=== PATIENT | female | born 1990 | race Caucasian/White ===

== ENCOUNTER → 2016-05-12 | Outpatient (CLI) | payer OTHER ==
[~2016-05-12] MED LIST: LEVO25TA5 PO
== END | disposition home or self-care (01) ==
LOC: C.LAB1850 09:15
PROVIDERS: ATTEND Obstetrics & Gynecology
DX: E03.9 Hypothyroidism, unspecified (principal)

== ENCOUNTER 2016-05-14 11:24 | Day surgery (SDC) | payer OTHER ==
--- NOTE | 2016-05-12 18:26 | HISTORY & PHYSICAL EXAMINATION ---
DATE OF ADMISSION: 05/14/2016 ADMITTING DIAGNOSIS: Missed . ADMISSION HISTORY: The patient is a 25-year-old 1, para 0 at approximately 10 weeks gestational age by dates, who is admitted for suction D\T\E for missed AB. The patient was seen in late April for her new OB visit. At that point, a pelvic ultrasound showed an empty intrauterine sac with quantitative hCG of 17,000. The patient returned 1 week later for repeat ultrasound in the interval time. She has begun to bleed. Repeat ultrasound in the office today shows a blighted ovum, treatment options were discussed. The patient is requesting the above listed procedure. PAST MEDICAL HISTORY: OBSTETRICAL: As above. GYNECOLOGIC: None. MEDICAL: Hypothyroidism. SURGICAL: None. ALLERGIES: No known drug allergies. SOCIAL HISTORY: No smoking. FAMILY HISTORY: Noncontributory. REVIEW OF SYSTEMS: As per HPI. ADMISSION PHYSICAL EXAMINATION: GENERAL: Shows a pleasant female in no acute distress. VITAL SIGNS: Blood pressure of 96/72 and a weight of 124 pounds. HEENT EXAMINATION: Unremarkable. NECK: Supple. LUNGS: Clear. HEART: With a regular rhythm and rate. ABDOMEN: Soft, nontender. PELVIC: Shows normal external genitalia, vaginal wall pink and rugated. Cervical os is closed. There is some blood in the posterior fornix. Bimanual examination shows an 8-10 week size anterior uterus. The adnexa show no palpable masses. RECTAL: Confirmatory. EXTREMITIES: Exam shows no deep calf tenderness. NEUROLOGIC: Grossly intact. IMPRESSION: A 25-year-old 1, para 0 at 10 weeks gestational age, suction D\T\E for missed . PLAN: Risks, benefits and alternatives to the surgery have been discussed. While the benefits will be removal of gestational tissue, the risks are bleeding, infection, inadvertent perforation of the uterus or failure to remove all the gestational tissue. The patient understands this. Permit has been signed and she wishes to proceed.
[~2016-05-14] VITALS: Ht 152.4 cm; Wt 56.3 kg
[2016-05-14 11:21] VITALS: BP 92/68; PULSE 85; TEMP 36.9; O2SAT 100; Ht 152.4 cm; Wt 56.3 kg
[~2016-05-14 11:24] MED LIST changes: +DOXYCYCLINE HYCLATE 100 MG CAP PO SCH; +LACTATED RINGER'S 1000ML 1,000 ML IV SCH; -LEVO25TA5 PO
[2016-05-14] MEDS ORDERED: LEVO25TA5 PO (12:18)
--- NOTE | 2016-05-14 12:49 | History & Physical Bridge Note ---
H&P Re-Evaluation Bridge Note: I have examined the patient, reviewed the History & Physical and in the interval since the performance of the History & Physical I have noted the following changes of clinical significance: No changes noted
[2016-05-14] MEDS ORDERED: MIDAZOLAM HCL 1 MG/ML 2ML VIAL ONE (12:52)
[2016-05-14] MEDS ORDERED: PROPOFOL IV EMULSION 10 MG/ML 20 ML VIAL IV ONE (12:52)
[2016-05-14] MEDS ORDERED: LIDOCAINE HCL 2% 2 ML VIAL (20MG/ML) ONE (12:52)
[2016-05-14] MEDS ORDERED: FENTANYL CITRATE INJ 50 MCG/1 ML 2 ML VIAL ONE ×2 (12:52→14:06)
[2016-05-14] MEDS ORDERED: DEXAMETHASONE SOD INJ 4 MG/ML VIAL ONE (12:52)
[2016-05-14] MEDS ORDERED: ONDANSETRON INJ 2 MG/ML 2 ML VIAL ONE (12:52)
[2016-05-14] MEDS ORDERED: KETOROLAC TROMETHAMINE 30 MG/ML VIAL ONE (13:35)
[2016-05-14] MEDS ORDERED: SODIUM CHLORIDE 0.9% 1000ML 1,000 ML IV SCH (13:55)
--- NOTE | 2016-05-14 13:55 | [facility] Operative Report ---
Operative Report Operative Date May 14, 2016. Pre-Operative Diagnosis Missed Post-Operative Diagnosis same Procedure(s) Performed D&E Surgeon Dr. Polly Arriaga Social Service Worker Surgeon(s) none Estimated Blood Loss 50 ml Findings 9 week size uterus, no adnexal masses, scant bleeding from cervical os. Fluids 500 Specimens A: retained products of conception Drains none Anesthesia GET Complication(s) None Disposition Recovery Room / PACU I attest to the content of the Intraoperative Record and any orders documented therein. Any exceptions are noted below.
--- NOTE | 2016-05-14 13:58 | Discharge Instructions ---
Discharge Instructions Visit Reason for Visit: Missed Discharge Discharge Diagnosis / Problem: D&E for miscarriage Discharge Goals Goal(s): Therapeutic intervention Activity Recommendations Activity Limitations: per Instructions/Follow-up section Anesthesia . Post Anesthesia Instructions: If you have had General Anesthesia or IV Sedation: * Do not drive today. * Resume driving when surgeon permits. * Do not make important decisions or sign legal documents today. * Call surgeon for: 1. Temperature elevations greater than 101 degrees F. 2. Uncontrollable pain. 3. Excessive bleeding. 4. Persistent nausea and vomiting. 5. Medication intolerance (nausea, vomiting or rash). * For nausea and vomiting use only clear liquids such as: tea, soda, bouillon until nausea subsides, then gradually increase diet as tolerated. * If you have any concerns or questions, call your surgeon's office. If physician is unavailable and it is an emergency, call 911 or go to the nearest emergency room. . Instructions / Follow-Up Instructions / Follow-Up ACTIVITY RECOMMENDATIONS: * Avoid tampons, douching, hot tubs, pools, and intercourse until bleeding has stopped. * May shower as usual. * No strenuous activity for 24-48 hours. After 24-48 hours, you may do anything you feel like doing (driving and sports are okay). SPECIAL CARE INSTRUCTIONS: Special Diet: * Mild nausea may occur in the immediate post-operative period. * Take clear liquids such as tea, cola or bouillon until all nausea has subsided; you may then resume your normal diet. Special Care: * Light bleeding and vaginal spotting can last from a few days to 3-4 weeks. Call your doctor if bleeding becomes heavier than the heaviest part of your period. * Check your temperature twice a day for one week. If it goes above 100.4 degrees Fahrenheit (38.0 Celsius), notify your doctor. * Call your doctor's office for an appointment for 6 weeks after your surgery. FOLLOW-UP VISIT: Call your doctor's office for an appointment for 6 weeks after your surgery. Diet Recommendations Recommended Home Diet: resume previous diet Procedures Procedures Performed: Dilation, curettage, and evacuation Pending Studies Studies pending at discharge: no Medical Emergencies . Who to Call and When: Medical Emergencies: If at any time you feel your situation is an emergency, please call 911 immediately. . Non-Emergent Contact Non-Emergency issues call your: Primary Care Provider, [facility] . . "Provider Documentation" section prepared by Clotilde Arriaga.
[2016-05-14] MEDS ORDERED: OXYCODONE/ACETAMINOPHEN 5-325 TAB PO PRN (14:00)
[2016-05-14] MEDS ORDERED: PROMETHAZINE HCL INJ 25 MG in SODIUM CHLORIDE 0.9% 50ML 50 ML IV PRN (14:00)
[2016-05-14] MEDS ORDERED: IBUPROFEN 600 MG TAB PO PRN (14:00)
[2016-05-14] MEDS ORDERED: KETOROLAC TROMETHAMINE 30 MG/ML VIAL IV. PRN (14:00)
[2016-05-14] MEDS ORDERED: ONDANSETRON INJ 2 MG/ML 2 ML VIAL IV PRN ×2 (14:00→14:15)
[2016-05-14] MEDS ORDERED: EpHEDrine SULFATE INJ 50 MG/ML AMP IV PRN (14:15)
[2016-05-14] MEDS ORDERED: FENTANYL CITRATE INJ 50 MCG/1 ML 2 ML VIAL IV PRN (14:15)
[2016-05-14] MEDS ORDERED: ATROPINE SULFATE 0.1 MG/ML 5ML SYR IV PRN (14:15)
--- NOTE | 2016-05-14 14:29 | Anesthesiology Progress Note ---
Anesthesia Post Op Note Date & Time May 14, 2016 at 14:28 Vital Signs Pain Intensity: 0 Vital Signs Past 12 Hours Date Time Temp Pulse Resp B/P Pulse Ox O2 Delivery O2 Flow Rate FiO2 05/14/16 14:20 69 12 107/61 98 Room Air 05/14/16 14:10 69 18 111/71 100 Mask 10 05/14/16 14:00 80 16 114/68 100 Mask 10 05/14/16 13:51 37.0 86 12 109/71 100 Mask 10 05/14/16 11:21 36.9 85 20 92/68 100 Room Air Notes Mental Status: alert / awake / arousable, participated in evaluation Pt Amnestic to Procedure: Yes Nausea / Vomiting: adequately controlled Pain: adequately controlled Airway Patency, RR, SpO2: stable & adequate BP & HR: stable & adequate Hydration State: stable & adequate Anesthetic Complications: no major complications apparent
--- NOTE | 2016-05-14 14:32 | OPERATIVE REPORT ---
DATE OF OPERATION: 05/14/2016 PREOPERATIVE DIAGNOSIS: Missed at 9 weeks. POSTOPERATIVE DIAGNOSIS: Same. PROCEDURE: D\T\E. SURGEON: Dr. Clotilde Arriaga. ANESTHESIA: General endotracheal. ESTIMATED BLOOD LOSS: 50 mL. HISTORY OF PRESENT ILLNESS: The patient is a 25-year-old 1, para 0 white female who had presented for her initial OB visit at approximately 9 weeks. She was noted to have at that point a 9-week gestational sac but no pole or yolk sac. Followup ultrasound confirmed the presence of a blighted ovum. The patient had not experienced any bleeding except for some spotting and some mild pelvic discomfort. Followup ultrasound confirmed again several weeks later that the blighted ovum is still present. Options were discussed with the patient including observation, Cytotec versus a D & E The patient elected for D&E and the procedure as well as the risks were reviewed with the patient and all questions were answered to her satisfaction. GROSS FINDINGS: Uterus was gravid and approximately 9 weeks in size, mobile and has a normal contour. Bilateral ovaries were also without masses. Cervix was within normal limits. Perineum was nulliparous. There was some scant bleeding from the cervical os. DESCRIPTION OF PROCEDURE: After the patient received adequate general endotracheal anesthesia, she does have a history of acid reflux on the way back to the OR. She was prepped and draped in the usual sterile fashion. After her bladder was emptied, a weighted speculum was placed in the vagina and the anterior lip of the cervix was grasped with a single tooth tenaculum. Cervix was dilated to a #25 Hanks dilator. A #8 air shield was used to evacuate the contents of the uterus. Post-evacuation, curettage revealed good uterine cry throughout. Hemostasis was noted to be satisfactory both from the cervix and from the tenaculum site. Case was then terminated. The patient tolerated the procedure well and was stable upon arrival in recovery room. I attest to the content of the Intraoperative Record and any orders documented therein. Any exceptions are noted below. MTDD
[2016-05-14 14:40] VITALS: BP 95/60; PULSE 65; TEMP 36.7; O2SAT 99
[2016-05-14 15:10] VITALS: BP 103/53; PULSE 79; O2SAT 99
== END 2016-05-14 16:16 | disposition home or self-care (01) ==
LOC: C.ACU 11:24
PROVIDERS: ATTEND Obstetrics & Gynecology
DX: O02.1 Missed abortion (principal); E03.9 Hypothyroidism, unspecified; Z98.818 Other dental procedure status

== ENCOUNTER → 2017-08-12 | Outpatient (CLI) | payer OTHER ==
[~2017-08-12] MED LIST changes: -DOXYCYCLINE HYCLATE 100 MG CAP PO SCH; -LACTATED RINGER'S 1000ML 1,000 ML IV SCH; +LEVO25TA5 PO
[2017-08-12 14:45] LABS: BASO % 0.5 %; BASO ABS # 0.05 K/uL (0-0.2); EOS % 0.4 %; EOS ABS # 0.04 K/uL (0-0.5); HEMOGLOBIN 14.1 g/dL (12.0-16.0); IG# 0.02 K/uL (0.00-0.02); LYMPH % 22.6 %; LYMPH ABS # 2.12 K/uL (1.2-3.4); MEAN CELL VOLUME 91.1 fL (80-100); MEAN CORPUSCULAR HEMOGLOBIN 32.9 pg (25-34); MEAN CORPUSCULAR HGB CONC 36.2 g/dl (32-36); MEAN PLATELET VOLUME 9.5 fL (7.4-10.4); MONO % 7.9 %; MONO ABS # 0.74 K/uL (0.11-0.59); NEUT % 68.4 %; NEUT ABS # 6.41 K/uL (1.4-6.5); PLATELET COUNT 314 K/uL (130-400); RED CELL DISTRIBUTION WIDTH CV 12.3 % (11.5-14.5); RED CELL DISTRIBUTION WIDTH SD 40.8 fL (36.4-46.3); WHITE BLOOD COUNT 9.38 K/uL (4.8-10.8)
== END | disposition home or self-care (01) ==
LOC: C.LAB1850 13:23
PROVIDERS: ATTEND Obstetrics & Gynecology
DX: O09.291 Supervision of pregnancy with other poor reproductive or obstetric history, first trimester (principal); Z3A.00 Weeks of gestation of pregnancy not specified

== ENCOUNTER → 2017-08-12 | Outpatient (CLI) | payer OTHER | END | disposition home or self-care (01) | LOC: C.LABSPEC 16:18 | PROVIDERS: ATTEND Obstetrics & Gynecology | DX: O09.291 Supervision of pregnancy with other poor reproductive or obstetric history, first trimester (principal); Z3A.00 Weeks of gestation of pregnancy not specified ==